=== PATIENT | male | born 2000 | race Caucasian/White ===

== ENCOUNTER 2021-08-27 11:11 | Emergency (ER) | payer BC ==
[2021-08-27] MEDS ORDERED: Ondansetron 4 MG/2 ML SDV IVPUSH ONE (11:52)
== END 2021-08-27 14:30 | disposition home or self-care (01) ==
LOC: JD.ED 11:11
DX: R56.9 Unspecified convulsions (principal)
CPT/HCPCS: 36415; 80053; 80306; 81001; 85025; 96374; 99284; J2405; 99283